=== PATIENT | female | born 1965 | race American Indian/Alaskan Native ===

== ENCOUNTER 2021-08-15 05:10 | Emergency (ER) | payer SELFPAY ==
[2021-08-15 05:49] LABS: Basophils % (Auto) 0.5 % (0.0-1.8); Eosinophils # (Auto) 0.1 K/mm3 (0.0-0.4); Eosinophils % (Auto) 1.4 % (0.0-4.3); Hematocrit 44.1 % (30.3-42.9); Hemoglobin 14.1 gm/dl (10.1-14.3); Lymphocytes # (Auto) 2.4 K/mm3 (1.2-5.4); Lymphocytes % (Auto) 30.1 % (13.4-35.0); Mean Corpuscular HGB Conc 32 % (30-34); Mean Corpuscular Volume 84 fl (79-97); Monocytes # (Auto) 0.4 K/mm3 (0.0-0.8); Monocytes % (Auto) 5.2 % (0.0-7.3); Platelet Count 309 K/mm3 (140-440); Red Blood Count 5.27 M/mm3 (3.65-5.03); Red Cell Distribution Width 14.6 % (13.2-15.2)
--- NOTE | 2021-08-15 05:56 | XRay Report ---
XR CHEST ROUTINE 2V INDICATION / CLINICAL INFORMATION: Chest Pain. COMPARISON: None available. FINDINGS: SUPPORT DEVICES: None. HEART /PULMONARY VASCULATURE: No significant abnormality. LUNGS / PLEURA: No significant pulmonary or pleural abnormality. No pneumothorax. ADDITIONAL FINDINGS: No significant additional findings. IMPRESSION: 1. No acute findings. Signer Name: Calin Vazquez MD Signed: 08/15/2021 5:52 AM Workstation Name: [id number]
[2021-08-15 06:07] LABS: BUN/Creatinine Ratio 15; Blood Urea Nitrogen 12 mg/dL (7-17); Calcium 9.9 mg/dL (8.4-10.2); Hemolysis Index 13
[2021-08-15 06:11] LABS: Bacteria,Urine 1+ /HPF (Negative); Mucus,Urine FEW /HPF
[2021-08-15 06:16] LABS: Bilirubin,Urine Moderate (Negative); Color,Urine Colorless (Yellow)
[2021-08-15 06:17] LABS: Blood,Urine Small (Negative); Protein,Urine <15 mg/dL mg/dL (Negative)
[2021-08-15 06:20] LABS: Ictotest,Urine Negative (Negative)
[2021-08-15] MEDS ORDERED: hydrALAZINE 10 MG TAB PO ONE (09:15)
[2021-08-15] MEDS ORDERED: hydrALAZINE 10 MG TAB PO SCH (10:00)
--- NOTE | 2021-08-15 10:15 | Emergency Department Report ---
ED General Adult HPI - General Chief complaint: Chest Pain Stated complaint: HIGH BP/PALPITATIONS Time Seen by Provider: 08/15/21 08:44 Source: patient Mode of arrival: Ambulatory Limitations: No Limitations - History of Present Illness Initial comments: Patient presents to the emergency department with a chief complaint of chest pain heart palpitations have been present for 1 day. Patient states that she is visiting from [place] and is out of her blood pressure medication and noticed today that her bottom number was greater than 100. Patient denies any shortness of breath or abdominal pain. She describes the chest pain as tightness that has been continuous in nature. -: Gradual Location: chest Radiation: non-radiation Severity scale (0 -10): 3 Quality: other (Tightness) Consistency: constant Improves with: none Worsens with: none Associated Symptoms: denies other symptoms Treatments Prior to Arrival: none - Related Data Previous Rx's Medication Instructions Recorded Last Taken Type amLODIPine 10 mg PO DAILY #30 tab 08/15/21 Unknown Rx Allergies Allergy/AdvReac Type Severity Reaction Status Date / Time No Known Allergies Allergy Unverified 08/15/21 05:21 ED Review of Systems ROS: Stated complaint: HIGH BP/PALPITATIONS Other details as noted in HPI Comment: All other systems reviewed and negative Constitutional: denies: chills, fever Eyes: denies: eye pain, eye discharge, vision change ENT: denies: ear pain, throat pain Respiratory: denies: cough, shortness of breath, wheezing Cardiovascular: chest pain. denies: palpitations Endocrine: no symptoms reported Gastrointestinal: denies: abdominal pain, nausea, diarrhea Genitourinary: denies: urgency, dysuria, discharge Musculoskeletal: denies: back pain, joint swelling, arthralgia Skin: denies: rash, lesions Neurological: denies: headache, weakness, paresthesias Psychiatric: denies: anxiety, depression Hematological/Lymphatic: denies: easy bleeding, easy bruising ED Past Medical Hx - Medications Home Medications: Home Medications Medication Instructions Recorded Confirmed Last Taken Type amLODIPine 10 mg PO DAILY #30 tab 08/15/21 Unknown Rx ED Physical Exam - General Limitations: No Limitations General appearance: alert, in no apparent distress - Head Head exam: Present: atraumatic, normocephalic - Eye Eye exam: Present: normal appearance, PERRL, EOMI - ENT ENT exam: Present: mucous membranes moist - Neck Neck exam: Present: normal inspection - Respiratory Respiratory exam: Present: normal lung sounds bilaterally. Absent: respiratory distress - Cardiovascular Cardiovascular Exam: Present: normal rhythm, tachycardia. Absent: systolic murmur, diastolic murmur, rubs, gallop - GI/Abdominal GI/Abdominal exam: Present: soft, normal bowel sounds. Absent: distended, tenderness - Extremities Exam Extremities exam: Present: normal inspection - Back Exam Back exam: Present: normal inspection - Neurological Exam Neurological exam: Present: alert, oriented X3, CN II-XII intact. Absent: motor sensory deficit - Psychiatric Psychiatric exam: Present: normal affect, normal mood - Skin Skin exam: Present: warm, dry, intact, normal color. Absent: rash ED Course Vital Signs 08/15/21 08/15/21 08/15/21 05:20 08:38 08:45 Temperature 98.0 F Pulse Rate 99 H 109 H 113 H Respiratory 16 15 16 Rate Blood Pressure 160/96 176/90 O2 Sat by Pulse 96 100 Oximetry 08/15/21 08/15/21 08/15/21 09:45 10:01 10:22 Temperature Pulse Rate 72 72 Respiratory 10 L 17 Rate Blood Pressure 163/91 144/87 O2 Sat by Pulse 98 97 99 Oximetry ED Medical Decision Making - Lab Data Result diagrams: 08/15/21 05:28 08/15/21 05:28 - EKG Data -: EKG Interpreted by Pa EKG shows normal: sinus rhythm - EKG Data Interpretation: other (Nonspecific T wave abnormalities) - Radiology Data Radiology results: report reviewed - Medical Decision Making Discussed results with patient Blood pressure improved with antihypertensive meds in the ED Critical care attestation.: If time is entered above; I have spent that time in minutes in the direct care of this critically ill patient, excluding procedure time. ED Disposition Clinical Impression: Nonspecific chest pain, Hypertension, Palpitations Disposition: 01 HOME / SELF CARE / HOMELESS Is pt being admited?: No Does the pt Need Aspirin: No Condition: Stable Instructions: Nonspecific Chest Pain, Adult, Hypertension (ED), Palpitations, Hypertension, Adult, [id number] Additional Instructions: return if worse Referrals: PRIMARY CARE, [Primary Care Provider] - 3-5 Days ART MORTON MD [Staff Physician] - 3-5 Days Time of Disposition: 10:46
[2021-08-15 10:20] VITALS: BP 144/87
--- NOTE | 2021-08-16 17:42 | Electrocardiograph Report ---
[facility] Test Date: 2021-08-15 Test Time: 05:17:34 Pat Name: TORRES GALLARDO Department: Room: Gender: F Environmental Maintenance Worker: JESUS : 1965 Requested By: SONDRA AVILEZ Order Number: [id number] Reading MD: Alvaro Dalal Measurements Intervals [place] Rate: 95 P: 73 MO: 128 QRS: 19 QRSD: 79 T: 257 QT: 328 QTc: 414 Interpretive Statements Sinus rhythm Nonspecific T abnormalities, diffuse leads No previous ECG available for comparison Electronically Signed On 08-16-2021 17:42:25 EDT by Alvaro Dalal
== END 2021-08-15 10:50 | disposition home or self-care (01) ==
LOC: ED 05:10
DX: R07.9 Chest pain, unspecified (principal); R00.2 Palpitations; I10 Essential (primary) hypertension
CPT/HCPCS: 36415; 71046; 80048; 81001; 83690; 84484; 85025; 85379; 93005; 99284